=== PATIENT | female | born 1955 | race Hispanic/Latino ===

== ENCOUNTER → 2021-09-20 | Outpatient (CLI) | payer MEDICARE | END | disposition home or self-care (01) | LOC: RAH 09:34 | PROVIDERS: ATTEND Family Medicine | DX: R10.31 Right lower quadrant pain (principal); Z90.710 Acquired absence of both cervix and uterus | CPT/HCPCS: 76856 ==

== ENCOUNTER 2024-02-13 06:19 | Day surgery (SDC) | payer MEDICARE ==
[~2024-02-13] VITALS: Ht 152.4 cm; Wt 64.0 kg
[2024-02-13] VITALS (9 sets, daily range): BP systolic 107–137; BP diastolic 50–65; PULSE 57–65; RESP 12–18; TEMP 97.6–98
[2024-02-13] MEDS ORDERED: HYDR25TA PO (08:19)
[2024-02-13] MEDS ORDERED: PRAV40TA3 PO (08:19)
[2024-02-13] MEDS ORDERED: LEVO75CA5 PO (08:19)
[2024-02-13] MEDS: 0.9%NACL 1000ML 1,000 ML IV ONE (08:21)
[2024-02-13] MEDS ORDERED: proPOFol 10 MG/ML 20ML VIAL IV ONE (09:47)
== END 2024-02-13 11:09 | disposition home or self-care (01) ==
LOC: ENDO 06:19 → DAH 06:19 → ENDO 11:09
PROVIDERS: ATTEND Internal Medicine
DX: Z12.11 Encounter for screening for malignant neoplasm of colon (principal); D12.8 Benign neoplasm of rectum; I10 Essential (primary) hypertension; E78.00 Pure hypercholesterolemia, unspecified; E03.9 Hypothyroidism, unspecified; Z90.710 Acquired absence of both cervix and uterus; Z90.89 Acquired absence of other organs; Z79.899 Other long term (current) drug therapy
CPT/HCPCS: 45380; J7030; J2704; A4620; A4215 ×2; A4223; A4222; A4221; A4663; A4606; J3490